=== PATIENT | male | born 1965 | race African-American/Black ===

== ENCOUNTER 2021-01-31 23:02 | Emergency (ER) | payer SELFPAY ==
[~2021-01-31] VITALS: Ht 190.5 cm; Wt 113.4 kg
[2021-01-31 23:37] VITALS: BP 152/90
== END 2021-02-01 02:53 | disposition left against medical advice (07) ==
LOC: ER 23:02 → EDBD 23:02 → ER 02-01 02:53
DX: F10.10 Alcohol abuse, uncomplicated (principal); Z53.21 Procedure and treatment not carried out due to patient leaving prior to being seen by health care provider; Y90.9 Presence of alcohol in blood, level not specified